=== PATIENT | male | born 1930 | race Caucasian/White ===

== ENCOUNTER → 2017-07-28 | Outpatient (CLI) | payer OTHER | END | disposition home or self-care (01) | LOC: EDBD → RAH 08:38 | PROVIDERS: ATTEND Orthopaedic Surgery | DX: I51.7 Cardiomegaly (principal); I10 Essential (primary) hypertension; I25.9 Chronic ischemic heart disease, unspecified; Z95.2 Presence of prosthetic heart valve | CPT/HCPCS: 93306 ==

== ENCOUNTER → 2017-12-14 | Outpatient (CLI) | payer OTHER | END | disposition home or self-care (01) | LOC: EDBD 12-07 10:00 → RAH 09:17 | PROVIDERS: ATTEND Nurse Practitioner Family | DX: N20.0 Calculus of kidney (principal); K57.30 Diverticulosis of large intestine without perforation or abscess without bleeding; R42 Dizziness and giddiness; K21.9 Gastro-esophageal reflux disease without esophagitis | CPT/HCPCS: 70450; 74176 ==